=== PATIENT | female | born 1990 ===

== ENCOUNTER 2017-03-11 19:38 | Emergency (ER) | payer OTHER ==
[2017-03-11 19:56] VITALS: BMI 21.9
[2017-03-11 20:02] VITALS: RESP 18; TEMP 98.6; O2SAT 99
[2017-03-11 20:39] LABS: ADD MANUAL DIFF? NO
[2017-03-11 21:04] LABS: ALB/GLOB RATIO 1.1 (1.1-1.8); ALKALINE PHOSPHATASE 50 U/L (38-133); ALT/SGPT 28 U/L (7-56); AST/SGOT 19 U/L (15-39); BLOOD UREA NITROGEN 10 mg/dL (7-21); CALCIUM 9.2 mg/dL (8.4-10.5); CARBON DIOXIDE 24 mmol/L (21-33); CHLORIDE 101 mmol/L (98-107); GFR AFRICAN-AMERICAN > 60; GLUCOSE,RANDOM 79 mg/dL (70-110); POTASSIUM 3.9 mmol/L (3.6-5.0); SODIUM 134 mmol/L (132-148)
[2017-03-11 21:10] LABS: BASO # 0.01 K/mm3 (0.0-2.0); BASO % 0.2 % (0.0-3.0); EOS # 0.1 (0.0-0.7); EOS % 1.5 % (1.5-5.0); GRAN # 3.39 (1.4-6.5); GRAN % 57.9 % (50.0-68.0); HEMATOCRIT 31.7 % (36.0-48.0); LYMPH # 1.9 (1.2-3.4); LYMPH % 32.5 % (22.0-35.0); MEAN CELL VOLUME 90.1 fL (80.0-105.0); MEAN CORPUSCULAR HEMOGLOBIN 31.8 pg (25.0-35.0); MEAN CORPUSCULAR HGB CONC 35.3 g/dl (31.0-37.0); MEAN PLATELET VOLUME 10.7 fl (7.0-11.0); MONO # 0.5 (0.1-0.6); MONO % 7.9 % (1.0-6.0); PLATELET COUNT 175 10^3/uL (120.0-450.0); RED CELL DISTRIBUTION WIDTH 12.9 % (11.5-14.5); WHITE BLOOD COUNT 5.9 10^3/ul (4.5-11.0)
--- NOTE | 2017-03-11 22:17 | ED PDOC ---
Arrival/HPI - General Chief Complaint: Female Genitourinary Time Seen by Provider: 03/11/17 20:13 Historian: Patient - History of Present Illness Narrative History of Present Illness (Text): 03/11/17 22:06 26-year-old female who is approximately 10 weeks presents today with vaginal bleeding that started around 9:00 this morning. Patient states around 9: 00 this morning she had heavy bleeding for which she bled quickly through one pad. Patient states throughout the day the bleeding has subsided. Patient states also 9:00 she had cramping in the lower abdomen but denies any cramping at present time. 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 Patient states she has not had an ultrasound to confirm IUP. Patient denies nausea vomiting or diarrhea. No urinary symptoms. No vaginal discharge. Denies back pain. No chest pain or shortness of breath. No other complaints Time/Duration: Other (this morning at 9am) Symptom Onset: Sudden Symptom Course: Improving Quality: Other (NO PAIN) Past Medical History - Provider Review Nursing Documentation Reviewed: Yes - Travel History Have you recently traveled outside [place] w/in the past 3 mons?: No - Psychiatric Hx Substance Use: No Family/Social History - Physician Review Nursing Documentation Reviewed: Yes Family/Social History: Unknown Family HX Smoking Status: no Hx Alcohol Use: No Hx Substance Use: No Allergies/Home Meds Allergies/Adverse Reactions: Allergies No Known Allergies Allergy (Verified 03/11/17 20:01) Home Medications: Home Meds Medication Instructions Recorded Confirmed Multivit/Folic Acid/I 1 tab PO DAILY 03/11/17 03/11/17 [ Plus] Review of Systems - Review of Systems Constitutional: absent: Fatigue, Fevers Respiratory: absent: SOB, Cough Cardiovascular: absent: Chest Pain, Palpitations Gastrointestinal: Abdominal Pain (resolved). absent: Constipation, Diarrhea, Nausea, Vomiting Genitourinary Female: Vaginal Bleeding (resolved). absent: Dysuria, Frequency, Hematuria, Vaginal Discharge Musculoskeletal: absent: Arthralgias, Back Pain, Neck Pain Skin: absent: Rash, Pruritis Neurological: absent: Headache, Dizziness Psychiatric: absent: Anxiety, Depression Physical Exam Vital Signs Reviewed: Yes Vital Signs Temp Pulse Resp BP Pulse Ox 03/11/17 23:07 81 18 107/58 L 99 03/11/17 19:56 98.6 F 78 18 112/60 99 Temperature: Afebrile Blood Pressure: Normal Pulse: Regular Respiratory Rate: Normal Appearance: Positive for: Well-Appearing, Non-Toxic, Comfortable Pain Distress: None Mental Status: Positive for: Alert and Oriented X 3 - Systems Exam Head: Present: Atraumatic Mouth: Present: Moist Mucous Membranes Neck: Present: Normal Range of Motion Respiratory/Chest: Present: Clear to Auscultation, Good Air Exchange. No: Respiratory Distress, Accessory Muscle Use Cardiovascular: Present: Regular Rate and Rhythm, Normal S1, S2. No: Murmurs Abdomen: Present: Normal Bowel Sounds. No: Tenderness, Distention, Peritoneal Signs, Rebound, Guarding Genitourinary/Pelvic Exam: Present: Normal External Genitalia, Vaginal Bleeding (minimal bleeding noted.), Cervical os Closed, Other (chaparoned by suad berry RN. ). No: Vaginal Discharge, Vaginal Lesions, Adenexal Tenderness, Adenexal Mass, Cervical Motion Tendernes, Odor Back: Present: Normal Inspection. No: CVA Tenderness, Paraspinal Tenderness Neurological: Present: GCS=15, Speech Normal Skin: Present: Warm, Dry, Normal Color. No: Rashes Psychiatric: Present: Alert, Oriented x 3 Medical Decision Making ED Course and Treatment: 03/11/17 22:21 Patient is nontoxic well appearing in no distress. vitals stable CBC: wnl CMP: wnl Beta hC TYPE AND SCREEN: B+ Urinalysis: + blood, + leukocytes, + many bacteria, + nitrates Ultrasound: FINDINGS: Uterus: There is a well formed gestational sac within the endometrial canal. A pole and yolk sac are seen within the gestational sac. [place] rump length measurement correlates with an estimated gestational age of 11 weeks 5 days. cardiac activity is seen with an average heart rate of 162 beats per minute. Adnexa: 2.2 cm right ovarian cyst. Bilateral ovarian flow. Free fluid: None. IMPRESSION: Single live IUP as above Discussed all the results the patient. advised f/u with the search engine optimization specialist within the next 2 days. advised immediate return if symptoms worsen,persist or if new symptoms develop. Impression: threatened , UTI Tylenol every 4 hours as needed for pain Increase fluids macrobid 1 tablet twice daily x 10 days. Followup with the radio sportscaster within the next 2 days Return immediately if symptoms worsen persist or if new symptoms develop: High fevers, heavy bleeding, severe abdominal pain, vomiting, diarrhea, dizziness or weakness or any other concerning symptoms develop. - Lab Interpretations Lab Results: 03/11/17 20:31 03/11/17 20:31 Lab Results 03/11/17 20:45: Urine Color Yellow, Urine Appearance Sl cloudy, Urine pH 6.0, Ur Specific [place] 1.025, Urine Protein Trace H, Urine Glucose (UA) Negative, Urine Ketones Negative, Urine Blood Large H, Urine Nitrate Positive H, Urine Bilirubin Negative, Urine Urobilinogen 0.2, Ur Leukocyte Esterase Trace H, Urine RBC 1 - 3, Urine WBC 1 - 3, Ur Epithelial Cells 0 - 2, Urine Bacteria Many 03/11/17 20:31: WBC 5.9, RBC 3.52, Hgb 11.2 L, Hct 31.7 L, MCV 90.1, MCH 31.8, MCHC 35.3, RDW 12.9, Plt Count 175, MPV 10.7, Gran % 57.9, Lymph % (Auto) 32.5, [facility] % (Auto) 7.9 H, Eos % (Auto) 1.5, Baso % (Auto) 0.2, Gran # 3.39, Lymph # 1.9, [facility] # 0.5, Eos # 0.1, Baso # 0.01 03/11/17 20:31: Blood Type B POSITIVE, Antibody Screen Negative, BBK History Checked No verified bt 03/11/17 20:31: Beta HCG, Quant [id number] H 03/11/17 20:31: Sodium 134, Potassium 3.9, Chloride 101, Carbon Dioxide 24, Anion Gap 13, BUN 10, Creatinine 0.4 L, Est GFR ( Amer) > 60, Est GFR ( Non-Af Amer) > 60, Random Glucose 79, Calcium 9.2, Total Bilirubin 1.0, AST 19, ALT 28, Alkaline Phosphatase 50, Total Protein 8.0, Albumin 4.2, Globulin 3.8, Albumin/Globulin Ratio 1.1 - RAD Interpretation Radiology Orders: 03/11/17 20:13 AGE [US] Stat Disposition/Present on Arrival - Present on Arrival Any Indicators Present on Arrival: No History of DVT/PE: No History of Uncontrolled Diabetes: No Urinary Catheter: No History of Decub. Ulcer: No History Surgical Site Infection Following: None - Disposition Have Diagnosis and Disposition been Completed?: Yes Diagnosis: Threatened , Urinary tract infection Disposition: HOME/ ROUTINE Disposition Time: 23:18 Patient Plan: Discharge Patient Problems: Current Active Problems Problem Status Onset Threatened Acute Urinary tract infection Acute Condition: GOOD Discharge Instructions (ExitCare): Threatened Miscarriage (ED), Urinary Tract Infection in (ED) Additional Instructions: Tylenol every 4 hours as needed for pain Increase fluids macrobid 1 tablet twice daily x 10 days. Followup with the radio sportscaster within the next 2 days Return immediately if symptoms worsen persist or if new symptoms develop: High fevers, heavy bleeding, severe abdominal pain, vomiting, diarrhea, dizziness or weakness or any other concerning symptoms develop Prescriptions: Nitrofurantoin Macrocrystals [Macrobid] 100 mg PO BID #20 cap Referrals: Nba Plummer MD [Primary Care Provider] - Follow up with primary Suzie Sandy MD [Staff Provider] - Follow up with primary Forms: WORK NOTE
[2017-03-11 22:30] LABS: URINE BILIRUBIN NEGATIVE (NEGATIVE); URINE BLOOD LARGE (NEGATIVE); URINE GLUCOSE (UA) NEGATIVE (NEGATIVE); URINE KETONE NEGATIVE (NEGATIVE); URINE LEUKOCYTE ESTERASE TRACE Leu/uL (NEGATIVE); URINE PROTEIN TRACE mg/dL (<30 mg/dL); URINE UROBILINOGEN 0.2 E.U./dL (<1 E.U./dL)
[2017-03-11 22:35] LABS: URINE APPEARANCE SL CLOUDY (CLEAR); URINE COLOR YELLOW (YELLOW)
[2017-03-11 22:48] LABS: URINE BACTERIA MANY (NEG); URINE EPITHELIAL CELLS 0 - 2 /hpf (0-5)
--- NOTE | 2017-03-11 22:48 | US ---
EXAM: US First Trimester, Transabdominal CLINICAL HISTORY: 26 years old, female; Pain; complicated by abdominal or pelvic pain; Lower; First trimester; Gestational age or lmp: [id number]; TECHNIQUE: Real-time transabdominal obstetrical ultrasound of the maternal pelvis and a first trimester with image documentation. COMPARISON: No relevant prior studies available. FINDINGS: Uterus: There is a well formed gestational sac within the endometrial canal. A pole and yolk sac are seen within the gestational sac. [place] rump length measurement correlates with an estimated gestational age of 11 weeks 5 days. cardiac activity is seen with an average heart rate of 162 beats per minute. Adnexa: 2.2 cm right ovarian cyst. Bilateral ovarian flow. Free fluid: None. IMPRESSION: Single live IUP as above.
[2017-03-11 23:08] VITALS: BP 107/58; PULSE 81
== END 2017-03-11 23:37 | disposition home or self-care (01) ==
LOC: ED 19:38 → MERGE 19:38 → ED 23:37
DX: O20.0 Threatened abortion (principal); O23.41 Unspecified infection of urinary tract in pregnancy, first trimester; Z3A.11 11 weeks gestation of pregnancy